=== PATIENT | female | born 2000 | race Caucasian/White ===

== ENCOUNTER 2024-06-25 16:06 | Emergency (ER) | payer OTHER, SELFPAY ==
--- NOTE | ~2024-06-25 | XR_ITS ---
EXAMINATION: XR ANKLE, LEFT CLINICAL INFORMATION: Ankle fracture COMPARISON: None available. TECHNIQUE: AP, lateral, and mortise views of the left ankle. FINDINGS: Overlying casting material obscures fine bony detail. There were mildly displaced fractures in the medial malleolus and distal fibula. The medial malleolus fracture extends into the joint space. Evaluation for effusion is limited, there does not appear to be large effusion. XR/XR ankle LT min 3V IMPRESSION: Mildly displaced fractures in the medial malleolus and distal fibula. The medial malleolus fracture extends into the joint space.
[2024-06-25 16:22] VITALS: BP 108/71; PULSE 97; RESP 18; TEMP 36.6; O2SAT 100; BMI 19.1
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
[2024-06-25] MEDS: Ketorolac Tromethamine 15 MG/ML VIAL IM (18:30)
[2024-06-25 18:33] VITALS: BP 108/71; PULSE 97; RESP 18; TEMP 36.6; O2SAT 100
== END 2024-06-25 18:33 | disposition home or self-care (01) ==
PROVIDERS: Emergency Provider Emergency Medicine
DX: S82.892A Other fracture of left lower leg, initial encounter for closed fracture (principal); M25.572 Pain in left ankle and joints of left foot; V44.5XXA Car driver injured in collision with heavy transport vehicle or bus in traffic accident, initial encounter; Y93.9 Activity, unspecified; Y92.488 Other paved roadways as the place of occurrence of the external cause; Y99.8 Other external cause status
CPT/HCPCS: 29515; 73610; 96372; 99283; 99284; J1885

== ENCOUNTER 2024-06-28 10:10 | Outpatient (REF) | payer OTHER, SELFPAY ==
--- NOTE | ~2024-06-28 | XR_ITS ---
EXAMINATION: XR ANKLE, LEFT CLINICAL INFORMATION: Pain. COMPARISON: Radiographs dated 06/25/2024. TECHNIQUE: AP, lateral, and mortise views of the left ankle. FINDINGS: Bony mineralization is normal. There is stable alignment of mildly displaced bimalleolar fractures. The ankle mortise is intact. No dislocation or ankle joint effusion is seen. Boehler's angle is normal. There is no calcaneal spur. No focal soft tissue swelling, gas or foreign body is seen. XR/XR ankle LT min 3V IMPRESSION: There is stable alignment of mildly displaced left ankle bimalleolar fractures. No significant new callus formation is seen. Electronically signed by: Leland Hall MD 07/25/2024 11:19 AM EDT
== END 2024-06-28 10:11 | disposition home or self-care (01) ==
LOC: HO.HOSX 10:10
PROVIDERS: Visit Provider Physician Assistant
DX: M25.572 Pain in left ankle and joints of left foot (principal); S82.842A Displaced bimalleolar fracture of left lower leg, initial encounter for closed fracture
CPT/HCPCS: 27808; 73610

== ENCOUNTER 2024-06-28 10:42 | Outpatient (AMB) | payer OTHER, SELFPAY ==
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
== END 2024-06-28 11:37 | disposition home or self-care (01) ==
PROVIDERS: Visit Provider Physician Assistant
DX: S82.842A Displaced bimalleolar fracture of left lower leg, initial encounter for closed fracture (principal)
CPT/HCPCS: 27808; 99204

== ENCOUNTER 2024-07-17 07:44 | Outpatient (REF) | payer OTHER, SELFPAY ==
--- NOTE | ~2024-07-17 | CT_ITS ---
EXAMINATION: CT WITHOUT CONTRAST ANKLE, LEFT CLINICAL INFORMATION: Ankle fracture. COMPARISON: Radiographs 06/28/2024. TECHNIQUE: A noncontrast CT of the left ankle is performed with sagittal and coronal reformats. This CT examination was performed using dose optimization techniques as appropriate, variously including the following: *Automated exposure control *Adjustment of mA and/or kV according to patient size (this includes techniques or standardized protocols for targeted exams where dose is matched to indication/reason for exam; i.e. extremities or head) *Use of iterative reconstruction technique Dose Length Product: 134 mGy-cm. FINDINGS: There is a sagittal oblique fracture involving the medial malleolus extending through the tibial metaphysis, and obliquely along the articular surface at the junction of the medial malleolus and tibial plafond. Maximal displacement is anteriorly, approximately 3 mm. From the posterior aspect of this fracture, there are several smaller, nondisplaced fractures extending along the posterior malleolus where there is up to 2 mm of surface depression. There is a transverse fracture of the distal fibula, which is partially healed with osseous bridging along the central and medial aspects. There is also a small avulsed fracture of the anterolateral tibia at the insertion of the anterior syndesmosis which is nondisplaced and also partially healed with central osseous bridging. CT/CT ankle LT wo IV con IMPRESSION: Trimalleolar ankle fracture, as detailed in the comments. Electronically signed by: Juan Daniel Neil MD 07/17/2024 08:56 AM EDT
== END 2024-07-17 07:45 | disposition home or self-care (01) ==
LOC: HO.CT 07:44
PROVIDERS: Visit Provider Physician Assistant
DX: S82.842A Displaced bimalleolar fracture of left lower leg, initial encounter for closed fracture (principal)
CPT/HCPCS: 73700

== ENCOUNTER 2024-08-09 09:47 | Outpatient (AMB) | payer OTHER, SELFPAY ==
--- NOTE | 2024-08-09 09:52 | A.OFFVIS_ITS ---
Vital Signs 08/09/24 09:56 Height 5 ft 1 in Weight 100 lb BMI 18.9 Intake Visit Reasons: OV- LT ankle CT review Intake Note: Raymundo is a 24 year old female who presents with dad today for a CT scan review of her left ankle. Patient reports she has pain for [address] scan. She states when she moves a certain way she tends to feel some discomfort. Dad mentions that her foot is going to the side. Allergies metronidazole [From Flagyl] Allergy (Verified 08/09/24 09:55) Shortness of Breath Penicillins Allergy (Verified 08/09/24 09:55) Rash HPI HPI OV- LT ankle CT review: Details: 24-year-old female who presents in the office today with her father for a follow-up of left ankle pain and to review CT. I last saw the patient in the office on 06/28/24. She was referred for a STAT CT scan to further evaluate the left ankle fracture. She was placed back into the posterior splint and encouraged to remain non-weight bearing. While in the office today, the patient reports ongoing pain for [address] scan. She mentions experiencing mild discomfort with certain movement. Her father mentions that her left foot is going out to the side. [facility] Social History (Updated 06/28/24 @ 11:10 by Nafisa Lam) Alcohol intake: never Current occupational status: unemployed Review of Systems Const All systems reviewed & are unremarkable except as noted in HPI and below Physical Exam Vital Signs: BMI result Body Mass Index 18.9 Const General: cooperative, healthy appearing and no acute distress Resp Effort & Inspection: normal respiratory effort and able to speak in complete sentences Cardio Rate: regular rate Peripheral pulses: Peripheral pulses 2+ throughout GI Palpation (GI): Soft to palpation Skin Lesions: no lesions Rashes: no rashes Extrem Other: Left ankle: Resolved ecchymosis. Slight tenderness to palpation over the medial and lateral malleolus. Able to perform dorsiflexion and plantarflexion but it is limited due to stiffness. Sensation is intact and Pedal pulse is intact. Assessment & Plan Assessment & Plan (1) Bimalleolar fracture of left ankle: Code(s): S82.842A - Displaced bimalleolar fracture of left lower leg, initial encounter for closed fracture Category: Medical Plan Ms. nAdrew is a 24-year-old female who presents in the office today with her father for a follow-up of left ankle pain and to review CT. I last saw the patient in the office on 06/28/24. She was referred for a STAT CT scan to further evaluate the left ankle fracture. She was placed back into the posterior splint and encouraged to remain non-weight bearing. While in the office today, the patient reports ongoing pain for [address] scan. She mentions experiencing mild discomfort with certain movement. Her father mentions that her left foot is going to the side. The case was reviewed by Dr. Kirk, who was available to speak with me but unable to see the patient with me in the office today, and a collaborative treatment plan was made. She was placed in a tall walking boot, off the shelf. He was encouraged to toe-touch weight bearing. I have placed an order for physical therapy to work on gentle ROM. Follow up will be in 6 weeks with repeat X-rays, or sooner if needed. CT of the left ankle without contrast, obtained on 07/17/24, revealed: There is a sagittal oblique fracture involving the medial malleolus extending through the tibial metaphysis, and obliquely along the articular surface at the junction of the medial malleolus and tibial plafond. Maximal displacement is anteriorly, approximately 3 mm. From the posterior aspect of this fracture, there are several smaller, nondisplaced fractures extending along the posterior malleolus where there is up to 2 mm of surface depression. There is a transverse fracture of the distal fibula, which is partially healed with osseous bridging along the central and medial aspects. There is also a small avulsed fracture of the anterolateral tibia at the insertion of the anterior syndesmosis which is nondisplaced and also partially healed with central osseous bridging. Orders: Orders PT Evaluation and Treatment Today S82.842A - Displaced bimalleolar fracture of left lower leg, initial encounter for closed fracture Patient Instructions: Scribed by Elba Flowers associate medical director, for Ellen Awad PA-C on 08/09/24 at 10:25 am EST. Coding Level of Care Code Global (42190) Diagnoses Bimalleolar fracture of left ankle S82.842A
[2024-08-09 09:56] VITALS: BMI 18.9
== END 2024-08-09 10:24 | disposition home or self-care (01) ==
PROVIDERS: Visit Provider Physician Assistant
DX: S82.842A Displaced bimalleolar fracture of left lower leg, initial encounter for closed fracture (principal)
CPT/HCPCS: 99024

== ENCOUNTER → 2024-08-09 09:47 | Outpatient (BNVA) | payer OTHER, SELFPAY | PROVIDERS: Visit Provider Physician Assistant ==

== ENCOUNTER 2024-09-20 10:17 | Outpatient (REF) | payer OTHER, SELFPAY | END 2024-09-20 10:18 | disposition home or self-care (01) | LOC: HO.HOSX 10:17 | PROVIDERS: Visit Provider Physician Assistant | DX: M25.572 Pain in left ankle and joints of left foot (principal) | CPT/HCPCS: 73610 ==

== ENCOUNTER 2024-09-20 13:40 | Outpatient (AMB) | payer OTHER, SELFPAY ==
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
== END 2024-09-20 14:41 | disposition home or self-care (01) ==
LOC: HO.HOS 13:40
PROVIDERS: Visit Provider Physician Assistant
DX: S82.842A Displaced bimalleolar fracture of left lower leg, initial encounter for closed fracture (principal)
CPT/HCPCS: 99024

== ENCOUNTER 2024-10-03 12:59 | Outpatient (RCR) | payer OTHER, SELFPAY ==
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
--- NOTE | 2024-11-08 11:28 | MHC.PT.DC ---
[facility] [place] Office [place] Office [place] Office [address] Luis Tompkins [address] [phone] F: [phone] F: [phone] F: [phone] F: [phone] Physical Therapy Discharge Report Diagnosis: Displaced bimalleolar fracture of L lower leg, initial encounter Date of Surgery: NA Date of Evaluation: 10/03/24 Date of Discharge: 11/08/24 Treatments to Date: 1 Cancellations to Date: 0 No Shows to Date: 5 Discharge Status: Visit Non-compliance Discharge Summary: Loretta mccarthy showed for 5 appointments after her evaluation. She is therefore being d/c from PT for non compliance. Electronically signed by: Carin Lock PT DPT Please sign and return to therapist. Thank you for your referral.
== END 2024-11-08 11:28 | disposition home or self-care (01) ==
LOC: HO.PT 12:59
PROVIDERS: Visit Provider Physician Assistant
DX: S82.842A Displaced bimalleolar fracture of left lower leg, initial encounter for closed fracture (principal)
CPT/HCPCS: 97110; 97161

== ENCOUNTER 2024-10-26 08:47 | Outpatient (REF) | payer OTHER, SELFPAY ==
--- OUTSIDE RECORDS SUMMARY | 2024-10-29 08:58 | XMS_ITS ---
Author Name [facility] Organization Unknown Results Test Name/Text Value Interpretation Date Range Source Aerobic culture COL COUNT: MODERATE GROWTH Normal [id number] [facility] RIFAMPIN 0.5 Susceptible [id number] - [facility] TRIMETHOPRIM/SULFAMETHOX AZOLE <=0.5/9.5 Susceptible [id number] - [facility] VANCOMYCIN Susceptible [id number] [facility] CLINDAMYCIN 0.5 Susceptible [id number] - [facility] S TETRACYCLINE 0.5 Susceptible [id number] - [facility] OXACILLIN Susceptible [id number] [facility] LEVOFLOXACIN 1 Susceptible [id number] - [facility] Aerobic culture COL COUNT: MODERATE GROWTH Normal [id number] [facility] LEVOFLOXACIN 0.5 Susceptible [id number] - [facility] PENICILLIN 0.48589 Susceptible [id number] - [facility] VANCOMYCIN Susceptible [id number] [facility] AMOXICILLIN 0.25 Susceptible [id number] - [facility] S History of Medication Use Medication Directions Dispensed Refills Start Date End Date Stat us Cephalexin 500 MG Cephalexin 500 MG 02/25/2023 suspended Doxycycline Hyclate 100 MG Doxycycline Hyclate 100 MG 02/25/2023 active
== END 2024-10-26 08:48 | disposition home or self-care (01) ==
LOC: HO.HOSX 08:47
PROVIDERS: Visit Provider Physician Assistant
DX: Z13.89 Encounter for screening for other disorder (principal)

== ENCOUNTER 2024-12-06 11:28 | Outpatient (REF) | payer OTHER, SELFPAY ==
--- NOTE | ~2024-12-06 | XR_ITS ---
CLINICAL HISTORY: M25.579 - Pain in unspecified ankle and joints of unspecified foot 3 view left ankle Comparison: None Findings: No acute fractures or dislocations. No significant loss of joint space, osteophytes, or erosions. No ankle effusion. No radiopaque foreign body. IMPRESSION: 1. No acute findings. This document has been electronically signed by: Paolo Paul MD on 12/08/2024 07:59:35
--- OUTSIDE RECORDS SUMMARY | 2024-12-07 13:48 | XMS_ITS | Clinical Summary ---
Author Organization [facility] Address [address] [place] [address] Care Team Providers Care Violin Repairer Name Role Phone Camila Pittman MD Primary Care Provider [phone] Allergies No known active allergies Medications Medication Sig Dispensed Refills Start Date End Date Status ibuprofen (ADVIL,MOTRIN) 400 MG tablet Take 1 tablet (400 mg total) by mouth every 6 (six) hours as needed for pain or fever (or swelling). 30 tablet 0 07/01/2020 Active lidocaine (LIDODERM) 5 % Place 1 patch onto the skin daily. Remove & Discard patch within 12 hours or as directed by MD 6 patch 0 07/01/2020 Active cyclobenzaprine (FLEXERIL) 10 MG tablet Take 1 tablet (10 mg total) by mouth every 8 (eight) hours as needed for muscle spasms. 15 tablet 0 07/01/2020 Active ondansetron (ZOFRAN-ODT) 4 MG disintegrating tablet Take 1 tablet (4 mg total) by mouth 3 (three) times a day as needed for nausea. 12 tablet 0 04/14/2022 Active cetirizine (ZyrTEC) 10 MG tablet Take 1 tablet (10 mg total) by mouth daily. 0 Active Active Problems Estimated Date of Delivery Comme nts Yes 10/31/2023 No known active problems Family History Medical History Relation Name Comments Celiac disease Sister Endometriosis Sister Relation Name Status Comments Sister Social History Tobacco Use Types Packs/Day Years Used Date Smoking Tobacco: Every Day Nicotine Inhalation Smokeless Tobacco: Never Tobacco Cessation:Ready to Q uit: Not Asked; Counseling Given: Not Answered Alcohol Use Standard Drinks/Week Comments No 0 (1 standard drink = 0.6 oz pur e alcohol) Estimated Date of Delivery Comme nts Yes 10/31/2023 Sex and Gender Information Value Date Recorded Sex Assigned at Female 07/01/2020 8:50 AM EDT Gender Identity Not on file Sexual Orientation Not on file Job Start Date Occupation Industry Not on file Not on file Not on file Last Filed Vital Signs Vital Sign Reading Time Taken Comments Blood Pressure 122/82 07/12/2023 4:31 PM EDT Pulse 71 07/12/2023 4:31 PM EDT Temperature 37.2 ??C (99 ??F) 07/12/2023 4:31 PM EDT Respiratory Rate 18 07/12/2023 4:31 PM EDT Oxygen Saturation 100% 07/12/2023 4:31 PM EDT Inhaled Oxygen Concentration - - Weight 47.6 kg (105 lb) 04/19/2023 1:53 PM EDT Height 154.9 cm (5' 1 ) 04/19/2023 1:53 PM EDT Body Mass Index 19.84 04/19/2023 1:53 PM EDT Plan of Treatment Health Maintenance Due Date Last Done Comments Hepatitis B Vaccines (1 of 3 - 3-dose series) 2002 Hepatitis C Screening 2002 COVID-19 Vaccine (#1) 02/05/2003 Pneumococcal Vaccine (1 of 2 - PCV) 2008 Depression Screening 2014 Gonorrhea and Chlamydia Screening 2015 Preventative Health Evaluation 2020 DTap / Tdap / Td (1 - Tdap) 2021 Cervical Cancer Screening (P ap Smear) 2023 Influenza Vaccine (#1) 2024 RSV Adult > 60+ Yrs or Pregn ant (1 - 1-dose 75+ series) 2077 RSV Ped < 20 months Aged Out No longe r eligible based on patient's age to complete this topic Care Teams Violin Repairer Relationship Specialty Start Date End Date Camila Pittman MD [address] [address] PCP - General Neonatology 04/14/22
== END 2024-12-06 11:29 | disposition home or self-care (01) ==
LOC: HO.HOSX 11:28
PROVIDERS: Visit Provider Physician Assistant
DX: M25.572 Pain in left ankle and joints of left foot (principal)
CPT/HCPCS: 73610

== ENCOUNTER 2025-05-06 12:40 | Outpatient (AMB) | payer OTHER, SELFPAY ==
[2025-05-06 12:43] VITALS: BP 116/82; PULSE 109; RESP 16
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
--- OUTSIDE RECORDS SUMMARY | 2025-05-06 14:00 | XMS_ITS | Clinical Summary ---
Author Organization [address] [place] [address] Address [address] [place] [address] Phone Care Team Providers Care Rn Clinical Appeals Name Role Phone Everardo Pickard MD Primary Care Provider [phone] Allergies Active Allergy Reactions Criticality Noted Date Comments Amoxicillin 02/19/2025 Medications busPIRone (BUSPAR) 5 mg tablet Take 1 tablet (5 mg total) by mouth 2 (two) times a day. 01/11/2025 Active Encounters Date Type Department Care Team Description 02/19/2025 11:30 AM EDT Office Visit Internal Medicine - [place] [address] [facility] [address] [place] [address] Rachell Perez MD Adult general medical examination (Primary Dx); Other fatigue; Encounter for lipid screening for cardiovascular disease; Other abnormal glucose; Major depressive disorder with current active episode, unspecified depression episode severity, unspecified whether recurrent; MARTA (generalized anxiety disorder) from Last 3 Months Surgical History Surgery Date Site/Laterality Comments TYMPANOSTOMY TUBE PLACEMENT PROCEDURE:TYMPANOSTOMY TUBE PLACEMENT ADENOIDECTOMY PROCEDURE:ADENOIDECTOMY MYRINGOTOMY W/ TUBES 11/14/2011 - 11/13/2012 Bilateral Medical History Medical History Date Comments Dysmenorrhea DX:Dysmenorrhea Depression DX:Depression Attempted suicide (CMS/[facility] V24, CMS/[facility] V28) Family History Medical History Relation Name Comments Celiac disease Sister Endometriosis Sister Relation Name Status Comments Father Alive Maternal Grandfather Unknown Maternal Grandmother Unknown Mother Alive Paternal Grandfather Unknown Paternal Grandmother Unknown Sister Social History Tobacco Use Types Packs/Day Years Used Date Smoking Tobacco: Never Smokeless Tobacco: Never Tobacco Cessation:Counseling Given: Not Answered Alcohol Use Standard Drinks/Week Comments Not Currently 0 (1 standard drink = 0.6 oz pur e alcohol) Education Answer Date Recorded What is the highest level of school you have completed or the highest degree you have received? GED or equivalent 06/2025 Comments Unknown Sex and Gender Information Value Date Recorded Sex Assigned at Not on file Legal Sex Female 2:55 PM EST Gender Identity Not on file Sexual Orientation Not on file Obstetrics History Last Filed Vital Signs Vital Sign Reading Time Taken Comments Blood Pressure 98/68 02/19/2025 11:42 AM EDT Pulse 94 02/19/2025 11:42 AM EDT Temperature - - Respiratory Rate - - Oxygen Saturation 99% 02/19/2025 11:42 AM EDT Inhaled Oxygen Concentration - - Weight 48.5 kg (107 lb) 02/19/2025 11:42 AM EDT Height - - Body Mass Index - - Plan of Treatment Upcoming Encounters Date Type Department Care Team ([facility] st Contact Info) Description 02/25/2026 1:00 PM EDT Office Visit Internal Medicine - [place] [address] [facility] [address] [place] [id number] Everardo Pickard MD [address] [facility] [address] [place] [address] Health Maintenance Due Date Last Done Comments Gonorrhea/Chlamydia Screening 2002 HPV Vaccines (1 - 3-dose series) 2017 Meningococcal B Vaccine (1 o f 2 - Standard) 2018 Hepatitis B Vaccines (1 of 3 - 19+ 3-dose series) 2021 Depression Screening 10/13/2022 HIV Screening 10/13/2022 Hepatitis C Screening 10/13/2022 Social Influencers of Health Screening 10/13/2022 Cervical Cancer Screening: P ap Smear 2023 COVID-19 Vaccine (1 - 2023-2 5 season) 2024 Influenza Vaccine (Season Ended) 2025 DTaP,Tdap,and Td Vaccines (2 - Td or Tdap) 05/30/2034 05/30/2024 HIB Vaccines Aged Out No longer eligi ble based on patient's age to complete this topic Hepatitis A Vaccines Aged Out No long er eligible based on patient's age to complete this topic IPV Vaccines Aged Out No longer eligi ble based on patient's age to complete this topic MMR Vaccines Aged Out No longer eligi ble based on patient's age to complete this topic Meningococcal ACWY Vaccine Aged Out N o longer eligible based on patient's age to complete this topic Pneumococcal Vaccine: Pediat rics (0 to 5 Years) and At-Risk Patients (6 to 64 Years) Aged Out No longer eligi ble based on patient's age to complete this topic RSV Immunization Patients Un srinivasa 20 months Aged Out No longer eligible b ased on patient's age to complete this topic Varicella Vaccines Aged Out No longer eligible based on patient's age to complete this topic Insurance Care Teams Rn Clinical Appeals Relationship Specialty Start Date End Date Everardo Pickard MD [address] [address] PCP - General Internal Medicine 02/19/25
== END 2025-05-06 13:03 | disposition home or self-care (01) ==
PROVIDERS: Visit Provider Internal Medicine
DX: G90.50 Complex regional pain syndrome I, unspecified (principal)
CPT/HCPCS: 99204

== ENCOUNTER → 2025-05-06 12:40 | Outpatient (BNVA) | payer OTHER, SELFPAY | PROVIDERS: Visit Provider Internal Medicine | DX: S82.842A Displaced bimalleolar fracture of left lower leg, initial encounter for closed fracture (principal); V89.0XXA Person injured in unspecified motor-vehicle accident, nontraffic, initial encounter; Y93.9 Activity, unspecified; Y92.410 Unspecified street and highway as the place of occurrence of the external cause; Y99.9 Unspecified external cause status; G90.522 Complex regional pain syndrome I of left lower limb | CPT/HCPCS: 99202 ==

== ENCOUNTER 2025-09-02 12:50 | Outpatient (AMB) | payer OTHER, SELFPAY ==
--- NOTE | 2025-09-02 12:53 | A.OFFVIS_ITS ---
Vital Signs 09/02/25 12:54 Height 5 ft 1 in Weight 106 lb BMI 20.0 BP 90/58 L Blood Pressure Location Lt brachial Position Sitting Respiration 16 Pulse 80 Pulse Source Pulse Oximeter Intake Visit Reasons: 4 Month Follow Up Dough Catcher Required: No Accompanied by: Mother Allergies metronidazole (From Flagyl) Allergy (Verified 09/02/25 12:56) Shortness of Breath Penicillins Allergy (Verified 09/02/25 12:56) Rash Medication List - Last Reconciled 09/02/25 by Alisha Priest LPN buspirone 5 mg PO BID cetirizine (Zyrtec) 10 mg PO DAILY PRN gabapentin 300 mg PO BEDTIME HPI HPI 4 Month Follow Up: Details: History of Present Illness The patient is a 25-year-old female presenting with lower extremity Complex Regional Pain Syndrome (CRPS) symptoms. Her symptoms have been worsening despite continuing home exercises due to inability to attend physical therapy sessions. The exercises increase her pain, and she experiences swelling in the left lower extremity, particularly after standing for prolonged periods. The patient has been using gabapentin as needed, but reports minimal relief from the medication. She expresses interest in trying injections for pain management. The patient describes numbness in the knee and foot, which occurs after prolonged sitting or during the night, taking 20 to 30 minutes to resolve. She has attempted part-time work but had to stop due to exacerbation of symptoms, including sharp pains radiating to the knee. Pain Description - Onset: Symptoms have been worsening over time. - Quality: Pain increases with exercises and prolonged standing. - Location: Lower extremity, primarily left side. - Radiation: Sharp pains radiating to the knee. - Exacerbating factors: Prolonged standing, exercises. - Relieving factors: Elevation of the foot, rest. - Interference: Pain interferes with ability to work part-time. Physical Exam - Appears afebrile. - Alert and oriented. - Mood and affect appropriate. - Follows and participates in conversation appropriately. - Respiratory effort is unlabored. Pain Management - Affect: The patient expresses feelings of hopelessness due to persistent pain. - Analgesia: Currently using gabapentin with minimal relief; interested in trying injections. - Adverse Effects: None reported from current medication. - Activities of Daily Living: Pain limits ability to work part-time and perform prolonged standing activities. - Aberrant Drug Related Behaviors: None reported. [facility] Social History Alcohol intake: never Current occupational status: unemployed Physical Exam Vital Signs: Last Vital Signs Pulse 80 09/02/25 12:54 Resp 16 09/02/25 12:54 BP 90/58 L 09/02/25 12:54 BMI result Body Mass Index 20.0 Assessment & Plan Assessment & Plan (1) CRPS (complex regional pain syndrome) type I: Code(s): G90.50 - Complex regional pain syndrome I, unspecified Category: Medical Plan Plan Patient was informed and verbally consented to the use of an ambient scribe for clinic note documentation during this visit. 1. Complex Regional Pain Syndrome (Crps) - Consideration of LSB to manage pain and assess nerve involvement. - Plan to conduct a nerve conduction study to evaluate nerve function and identify potential nerve injuries before LSB. - Discussion of potential future use of a spinal cord stimulator if injections are not effective. Discussion Notes We discussed the option of nerve block injections to manage the patient's pain and assess the extent of nerve involvement. I explained the diagnostic and therapeutic benefits of the injections, including their ability to provide insight into nerve-mediated pain. We also considered a nerve conduction study to further evaluate nerve function and discussed the potential for a spinal cord stimulator if other treatments prove ineffective. Patient Instructions - Continue home exercises as tolerated, avoiding prolonged standing. - Elevate the foot and rest when experiencing increased pain or swelling. - Await a phone call to schedule the nerve conduction study. Orders: Orders NE electromyogram (EMG) 09/02/25 G90.50 - Complex regional pain syndrome I, unspecified Coding Level of Care Code Est Pt Level 3 (76502) Diagnoses CRPS (complex regional pain syndrome) type I G90.50
[2025-09-02 12:54] VITALS: BP 90/58; PULSE 80; RESP 16
== END 2025-09-02 13:21 | disposition home or self-care (01) ==
LOC: HO.PMC 12:51
PROVIDERS: PCP Physician Assistant; Visit Provider Internal Medicine
DX: G90.50 Complex regional pain syndrome I, unspecified (principal)
CPT/HCPCS: 99213

== ENCOUNTER → 2025-09-02 12:50 | Outpatient (BNVA) | payer OTHER, SELFPAY | PROVIDERS: Visit Provider Internal Medicine | DX: G90.522 Complex regional pain syndrome I of left lower limb (principal) | CPT/HCPCS: 99212 ==

== ENCOUNTER 2025-11-06 09:46 | Outpatient (AMB) | payer OTHER, SELFPAY ==
--- NOTE | 2025-11-06 09:47 | MHC.OFFVIS ---
Vital Signs 11/06/25 09:49 Height 5 ft 1 in Weight 104 lb BMI 19.6 BP 101/68 Blood Pressure Location Rt brachial Position Sitting Respiration 16 Pulse 80 Pulse Source Pulse Oximeter Intake Visit Reasons: Follow Up Pt. Request Cocoa Mill Operator Required: No Allergies metronidazole (From Flagyl) Allergy (Verified 11/06/25 09:51) Shortness of Breath Penicillins Allergy (Verified 11/06/25 09:51) Rash Medication List - Last Reconciled 11/06/25 by Alisha Priest LPN buspirone 5 mg PO BID cetirizine (Zyrtec) 10 mg PO DAILY PRN gabapentin 300 mg PO BEDTIME HPI HPI Follow Up Pt. Request: Details: History of Present Illness The patient is a 25-year-old female presenting for follow-up of Complex Regional Pain Syndrome (CRPS) of the left lower extremity subsequent to a left ankle fracture. Her ankle fracture was managed non-surgically with a cast, and no hardware was placed. Her symptoms have worsened recently, with pain on the side and top of her left foot extending below the toes. She reports increased frequency of numbness in her entire leg, occurring upon waking at night or after sitting for prolonged periods. She also experiences purple discoloration of the foot at least twice a week and a sensation that her pinky toe and the adjacent toe feel broken. The patient is prescribed gabapentin, which she reports is somewhat helpful, but she has not been taking it consistently, saving it due to fear of running out. For anxiety, she is on Buspar and was previously on Lexapro. She has stopped performing her home exercises due to increased pain. The patient has a nerve conduction study scheduled for December and an appointment with an orthopedist. Pain Description - Location: Pain is located on the side and top of the left foot, and extends across below the toes. - Quality: The patient describes a feeling as if her pinky toe and the adjacent toe are broken. - Associated symptoms: The pain is associated with numbness in the whole leg, swelling, and purple discoloration of the foot. - Exacerbating factors: The patient cannot wear sneakers and experiences increased pain when wearing shoes for too long. - Relieving factors: Gabapentin provides some relief. - Functional impact: The patient has stopped her home exercise program due to the pain. Physical Exam - Extremities: The left foot appears swollen. - There are early trophic changes noted in the left toenails. - Allodynia to touch is present on the left foot. Results - Tests and Diagnostics: A nerve conduction study is scheduled for December. Pain Management: - Affect: The patient has a history of anxiety and is currently taking Buspar. - Analgesia: The patient has been inconsistently taking her prescribed gabapentin, which she reports provides some relief. - Adverse Effects: The patient noticed a slower reaction time when taking gabapentin. - Activities of Daily Living: The pain prevents her from wearing sneakers and shoes for prolonged periods. - She has stopped her home exercise program due to pain. - Aberrant Drug-Related Behaviors: The patient reports saving her gabapentin due to fear of running out, indicating medication non-adherence. [facility] Social History Alcohol intake: never Current occupational status: unemployed Physical Exam Vital Signs: Last Vital Signs Pulse 80 11/06/25 09:49 Resp 16 11/06/25 09:49 BP 101/68 11/06/25 09:49 BMI result Body Mass Index 19.6 Assessment & Plan Assessment & Plan (1) CRPS (complex regional pain syndrome) type I: Code(s): G90.50 - Complex regional pain syndrome I, unspecified Category: Medical Plan Plan Patient was informed and verbally consented to the use of an ambient scribe for clinic note documentation during this visit. 1. Complex Regional Pain Syndrome (Crps) Of Left Lower Extremity - The patient exhibits fairly overt CRPS at this point, characterized by pain, swelling, purple discoloration, and allodynia in the left foot. - Will proceed with a left lumbar sympathetic block. - The patient was encouraged to resume taking gabapentin, particularly at night, to better control her symptoms. - She was strongly encouraged to restart her home exercise program, including desensitization exercises, to regain control over the condition. - She has a nerve conduction study scheduled for December. - If the sympathetic block does not provide long-term relief, IV bisphosphonate therapy will be considered as an alternative treatment. 2. Anxiety - The patient continues to take Buspar for anxiety. - She will be prescribed medication to take before the lumbar sympathetic block to help with paulo-procedural anxiety. Discussion Notes I discussed with the patient that her left foot is exhibiting overt signs of Complex Regional Pain Syndrome, including trophic changes in her toenails and allodynia to touch. We will proceed with the previously planned left lumbar sympathetic block. I explained that I will prescribe medication to take beforehand to help with any pain and anxiety related to the procedure. I encouraged her to resume her prescribed gabapentin at night to achieve better symptom control and to return to her home exercise program, emphasizing that this is the best way to regain function and prevent the condition from worsening. I informed her that if the sympathetic block does not provide long-term relief, we can consider bisphosphonate therapy as an alternative. Patient Instructions - Begin taking your gabapentin medication again as prescribed, especially at night, to help with your pain. - There are plenty of refills, so do not worry about running out. - It is very important to restart your home exercises for your foot. - You must work to regain control of your foot, or the pain will take control of you. - We will schedule you for a left lumbar sympathetic block, which is an injection in your lower back to help with the foot pain. - You will receive a prescription for medication to take before the injection to help you relax. - Keep your scheduled appointment for the nerve conduction study in December. Coding Level of Care Code Est Pt Level 4 (08550) Diagnoses CRPS (complex regional pain syndrome) type I G90.50
[2025-11-06 09:49] VITALS: BP 101/68; PULSE 80; RESP 16; BMI 19.6
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
--- OUTSIDE RECORDS SUMMARY | 2025-11-06 09:53 | XMS_ITS | Clinical Summary ---
Author Organization [facility] Prior to 04/13/25 Address [address] [place] [address] Care Team Providers Care Diffusion Furnace Operator Name Role Phone Camila Pittman MD Primary Care Provider [phone] Allergies No known active allergies Medications Medication [...] 71 07/12/2023 4:31 PM EDT Temperature 37.2 C (99 F) 07/12/2023 4:31 PM EDT Respiratory Rate 18 [...] (P ap Smear) 2023 Influenza Vaccine (#1) 2025 RSV Adult > 60+ Yrs or Pregn ant (1 - 1-dose 75+ series) 2077 RSV Ped < 20 months Aged Out No longe r eligible based on patient's age to complete this topic Care Teams Diffusion Furnace Operator Relationship Specialty Start Date End Date Camila Pittman MD [address] [address] PCP - General Neonatology 04/14/22
== END 2025-11-06 10:49 | disposition home or self-care (01) ==
LOC: HO.PMC 09:47
PROVIDERS: PCP Physician Assistant; Visit Provider Internal Medicine
DX: G90.522 Complex regional pain syndrome I of left lower limb (principal)
CPT/HCPCS: 99214

== ENCOUNTER → 2025-11-06 09:46 | Outpatient (BNVA) | payer OTHER, SELFPAY | PROVIDERS: PCP Physician Assistant; Visit Provider Internal Medicine | DX: G90.522 Complex regional pain syndrome I of left lower limb (principal); F41.9 Anxiety disorder, unspecified; Z79.899 Other long term (current) drug therapy | CPT/HCPCS: 99212 ==